=== PATIENT | male | born 1965 | race Two or more races ===

== ENCOUNTER 2018-05-03 09:47 | Observation (INO) | payer OTHER ==
[2018-05-03] MEDS ORDERED: HYDROmorphONE/DILAUDID 2 MG/ML INJ IVP ONE (11:06)
--- NOTE | 2018-05-03 11:07 | EDPHY ---
HPI/HX/ROS/PE/MDM Narrative: CHIEF COMPLAINT: Chest pain, back pain, syncope, dizziness HISTORY OF PRESENT ILLNESS: The patient is a Vietnamese-speaking 53 y/o male with a history of diabetes, hypertension, hypercholesterolemia, and chronic back pain arriving via EMS with his family complaining of chest pain, back pain , syncope, and dizziness this morning. He woke up feeling normal and checked his BGL which was also normal. He was able to walk his dog without issue. Upon returning to his house he drank a smoothie then felt "something cool inside my chest then I didn't know what happened until I found myself on the floor." He had room-spinning dizziness preceding the fall and continues to feel mildly dizzy. He noticed worsening left-sided back pain and left knee pain after the fall. This event was unwitnessed and his upstairs did not hear him collapse. His found him complaining of shortness of breath and grabbing his head, though right now he denies dyspnea or headache. He currently denies chest pain, but does report for the last 2 weeks he's had intermittent sharp chest pain lasting a few seconds at a time. He denies sensation of an irregular or rapid heart rate at any point. No known history of CAD or respiratory disease. No fever, chills, palpitations, vomiting, diarrhea, urinary complaints, headache , weakness, paresthesias. History obtained via Vietnamese world language teacher. REVIEW OF SYSTEMS: Aside from elements discussed in the HPI, a comprehensive 10-point review of systems was reviewed and is negative. PAST MEDICAL HISTORY: Diabetes, hypertension, hypercholesterolemia, kidney failure but not yet on dialysis, chronic back pain and shoulder surgery from injury several years ago. SOCIAL HISTORY: Nonsmoker. Family at bedside. Vietnamese-speaking. Not employed. VITAL SIGNS: Reviewed by me GENERAL: Well-developed, well-nourished, resting comfortably in no respiratory distress. HEENT: Atraumatic. Eyes: No icterus, no injection. Mouth: moist mucous membranes. No erythema or lesions. Neck: supple with no adenopathy. LUNGS: Clear to auscultation bilaterally, no wheezes, rhonchi or rales. CARDIAC: Regular rate and rhythm, no rubs, murmurs or gallops. ABDOMEN: Soft, nontender, nondistended, bowel sounds normal. BACK: Diffuse tenderness across entire spine. No CVA tenderness. No visible trauma. EXTREMITIES: No trauma. No edema. Range of motion is normal throughout. NEURO: Alert and oriented, grossly nonfocal. SKIN: Warm and dry, no rash. PSYCHIATRIC: Normal mentation, no agitation. Portions of this note were transcribed by a medical administrator. I personally performed a history, physical exam, medical decision making, and confirmed accuracy of information the transcribed note. ED Course: This is a 53 y/o male who presents with back pain, dizziness, and intermittent chest pain and what sounds like a syncopal episode this morning. He has diffuse spinal tenderness and it's hard to determine what is different from his baseline back pain. He is neurovascularly intact. Plan for IV, labs, EKG, head CT, C/T/L CT scans, chest x-ray. 1mg IV Dilaudid administered for pain. The 12 lead EKG was interpreted by myself. Sinus mechanism with abnormal R wave progression with prominent R in V2. See hard copy and/or "tracemaster" electronic copy for interpretation. Patient's evaluation emergency department included a head CT, CT cervical, thoracic, lumbar spine CT and chest x-ray. These were all negative for acute findings. Patient's laboratory evaluation is largely unremarkable. He has negative troponin. Given the fact that this patient has diabetes, hypertension, hypercholesterolemia, and is complaining of intermittent episodes of chest discomfort patient was admitted to the hospital to rule out cardiac syncope as a cause of today's event. I explained all this to the patient and his family via the household cook. MDM: Differential diagnosis for the patient's syncopal episode was considered including but not limited to vasovagal syncope, arrhythmia, dehydration, and blood loss. Differential diagnosis of this patient's fall was considered including but not limited to intracranial injury, long bone and pelvic bone fracture, spinal injury, intrathoracic injury, extremity injury, intra-abdominal injury, lacerations, abrasions, and contusions. - Data Points Imaging Results: CT Thoracic Spine: Impression: No evidence for acute fracture of the thoracic spine. Mild multilevel degenerative disk and degenerative joint disease in the thoracic spine. Incidental atherosclerotic calcifications in the coronary arteries. CT lumbar spine without contrast Impression: No evidence for acute fracture of the lumbar spine. Severe multilevel degenerative disk and degenerative joint disease in the lumbar spine, most predominant at L3-L4, L4-L5, and L5-S1. Results called and discussed with Dr. Yadira Vincent on May 03, 2018 at 1212 hours. Dictated By: Saul Almeida MD CT Head Impression: Normal. CT cervical spine without contrast. Impression: No evidence for acute fracture of the cervical spine. Degenerative disk and degenerative joint disease at C4-C5 and C5-C6 with mild encroachment. Results called and discussed with Dr. Yadira Vincent on May 03, 2018 at 1206 hours. Dictated By: Salu Almeida MD CXR: Impression: No acute findings in the chest. Dictated By: Hilario Montejo MD Imaging: Discussed imaging studies w/ scallop binder Radiologist, I viewed and interpreted images myself Laboratory Results: Laboratory Results 05/03/18 09:55 05/03/18 09:55 Medications Given: Discontinued Medications Acetaminophen (Tylenol) 650 mg PO Q6 PRN PRN Reason: Pain, Mild/Fever, Can Take PO Stop: 10/30/18 15:05 Last Admin: 05/04/18 03:55 Dose: 650 mg Atorvastatin Calcium (Lipitor) 80 mg PO HS [place] Stop: 10/30/18 20:59 Last Admin: 05/04/18 21:01 Dose: 80 mg Heparin Sodium (Porcine) (Heparin Sc Injection) 5,000 unit SC Q8HRS [place] Stop: 10/31/18 21:59 Last Admin: 05/05/18 06:06 Dose: 5,000 unit Hydromorphone HCl (Dilaudid) 1 mg IVP EDNOW ONE Stop: 05/03/18 11:07 Last Admin: 05/03/18 11:13 Dose: 1 mg Sodium Chloride (Ns) 1,000 mls @ 75 mls/hr IV CONT [place] Stop: 10/30/18 15:14 Last Admin: 05/03/18 16:00 Dose: 1,000 mls Levothyroxine Sodium (Synthroid) 88 mcg PO DAILY06 [place] Stop: 10/31/18 05:59 Last Admin: 05/05/18 06:06 Dose: 88 mcg [id number]-6-Uwkb Ethyl Esters (Fish Oil) 1,000 mg PO DAILY [place] Stop: 10/31/18 08:59 Last Admin: 05/05/18 08:27 Dose: 1,000 mg Point of Care Test Results: Chemistry 05/03/18 10:16 POC Troponin I 0.01 ng/mL ng/mL (0.00-0.08) General Time Seen by Provider: 05/03/18 10:24 Initial Vital Signs: Initial Vital Signs Temperature (C) 36.5 C 05/03/18 09:47 Heart Rate 79 05/03/18 09:47 Respiratory Rate 24 H 05/03/18 09:47 Blood Pressure 145/100 H 05/03/18 09:47 O2 Sat (%) 95 05/03/18 09:47 O2 Delivery Mode Room Air Allergies/Adverse Reactions: No Known Allergies Allergy (Verified 05/03/18 10:01) Home Medications: Medication Instructions Recorded Atorvastatin Calcium [Lipitor 40 80 mg PO HS 05/03/18 mg (*)] Levothyroxine [Synthroid 88 mcg 88 mcg PO DAILY06 05/03/18 (*)] Lisinopril [Zestril 40 mg (*)] 40 mg PO DAILY 05/03/18 [place]-3 Fatty Acids [Fish Oil 1000 1,000 mg PO DAILY 05/03/18 mg (*)] metFORMIN HCL [Glucophage 500 mg 1,000 mg PO BID 05/03/18 (*)] Departure - Departure Disposition: [facility] Inpatient Acute Clinical Impression: Multiple contusions Syncope Qualifiers: Syncope type: unspecified Qualified Code(s): R55 - Syncope and collapse Condition: Good Report Scribed for: Yadira Vincent Report Scribed by: Amanda Dobbs Date of Report: 05/03/18 Time of Report: 11:10
[2018-05-03 11:17] LABS: PLATELET COUNT 202 10^3/uL (150-400)
[2018-05-03] MEDS ORDERED: ONDANSETRON 4 MG/2 ML VIAL IVP PRN (15:06)
[2018-05-03] MEDS ORDERED: ACETAMINOPHEN 325 MG TAB PO PRN (15:06)
[2018-05-03] MEDS ORDERED: NS 1,000 ML IV SCH (15:15)
--- NOTE | 2018-05-03 15:38 | PDGENHP ---
History and Physical History and Physical: CC: Acute unprovoked syncope without prodrome, recent chest pains HISTORY: This patient who has no prior history of syncope or near-syncope was feeling well when he got up this morning, walked his dog, then had a sudden syncope without a real prodrome. He does mention that he drank us smoothie prior to the syncope and reports that it felt cooler than he expected in his esophagus, it had been refrigerated. However he suddenly while walking across the kitchen has no recollection until he later woke up on the floor. He recalls absolutely no other symptoms today or yesterday. He says he has been eating and drinking well without difficulty, no fevers. He does report that he has had several episodes of chest pain over the last 2 weeks some of which were exertion related but that these were sharp in nature. He has not had any previous evaluation for these and does not have a history of heart disease. However he does have significant risk factors with diabetes hyperlipidemia and hypertension and family history ROS: A comprehensive 10 system review revealed no other significant findings PAST MEDICAL HISTORY: Diabetes mellitus Diabetic nephropathy Hypertension Hyperlipidemia Chronic back pain from an injury FAMILY MEDICAL HISTORY: Sudden cardiac in at least 1 family member in [place], details uncertain SOCIAL HISTORY: lives with his No smoking On disability because of his chronic back pain MEDICATIONS: The patients list has been reconciled by our clinical pharmacist in the EMR. I have reviewed the list and ordered appropriate medicines. PHYSICAL EXAMINATION: Vital Signs: Mild intermittent hypertension otherwise normal and without fever Rougher Operator: Sinus Examination: General: alert, oriented, good mentation, relaxed Skin: warm, dry, good color, no rash HEENT: normal Neck: no mass or jvd Resps: relaxed Lungs: clear breath sounds Heart: regular, no murmur Abdomen: soft, nondistended, nontender, +BS, no mass Upper Extremities: normal Lower Extremities: no edema, warm No Bleeding or bruising Neurologic: normal speech/language, normal marketing rep, no focal weakness IV site: looks normal LABORATORY DATA: Undetectable troponin Creatinine 1.7 with most recent baseline 1.4 in 2015 Mildly hyperchloremic on his chemistry Unremarkable CBC RADIOLOGY STUDIES: I reviewed chest x-ray image from the ER this is a normal chest x-ray 12 LEAD EKG: I reviewed his 12 EKG tracing from ER which shows a sinus rhythm, no acute ischemic abnormalities, no evidence of prior infarction or conduction abnormality. Normal voltages. Comparison to the prior EKG shows no significant change ASSESSMENT: * Acute Syncope with no prodromal symptoms * chest pain, several episodes over the last 2 weeks, some features consistent with angina others less consistent * Chronic Diabetic Renal Disease, likely at baseline but no recent tests in our lab system * risk factors include diabetes mellitus, hyperlipidemia, hypertension, family history of sudden cardiac * Coronary Calcifications incidentally noted on CT scans done in the ER today * Increase in chronic back pain after today's fall but no evidence of spine injury by CT or exam PLANS: * Observation status * 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
[2018-05-03] MEDS: ATORVASTATIN CALCIUM 40 MG TAB PO SCH (20:17)
[2018-05-04] MEDS: LEVOTHYROXINE 88 MCG TAB PO SCH (05:56)
[2018-05-04] MEDS: OMEGA-3 FATTY ACIDS 1,000 MG CAP PO SCH (08:58)
--- NOTE | 2018-05-04 11:01 | ECHO ---
[email or web address] [address] [address] Main: [phone] Fax: Transthoracic Echocardiogram Name: GEORGE JOHNS MR#: [id number] Study Date: 05/04/2018 Study Time: 07:43 AM Date of : 1965 Age: 53 year(s) Height: 170.2 cm (67 in.) Weight: 109.32 kg (241 lb.) BSA: 2.19 m2 Gender: Male Examination: Echo Indication: Cardiac: syncope Image Quality: Contrast: Requested by: Russ Israel BP: 129 mmHg/82 mmHg Heart Rate: Rhythm: Indication: Cardiac: syncope Procedure Staff Commodity Loan Clerk: Dorian Pizarro RDCS Reading Physician: Adrien Rousseau MD Requesting Provider: Conclusions: Normal study Measurements: Chambers Valvular Assessment AV/MV Valvular Assessment TV/PV Normal Normal Normal Name Value Range Name Value Range Name Value Range Ao Leydi (MM): 3.0 cm (2.2 cm-3.7 AV Vmax: 1.05 m/s (1 m/s-1.7 TR Vmax: 2.24 mm/s ( - ) cm) m/s) TR PGmax: 20 mmHg ( - ) IVSd (2D): 1.0 cm (0.6 cm-1.1 AV maxP mmHg ( - ) syst. PAP: 25 mmHg ( - ) cm) LVOT Vmax: 0.72 m/s (0.7 m/s-1.1 PV Vmax: 0.92 m/s (0.6 m/s-0.9 LVDd (2D): 4.7 cm (4.2 cm-5.9 m/s) m/s) cm) MV E Vmax: 0.94 m/s ( - ) PV PGmax: 3 mmHg ( - ) LVDs (2D): 2.8 cm (2.1 cm-4 MV A Vmax: 0.66 m/s ( - ) cm) MV E/A: 1.42 ( - ) LVPWd (2D): 1.0 cm (0.6 cm-1 cm) LVEF (2D): 69 (>=54 %) Continued Measurements: Chambers Valvular Assessment AV/MV Valvular Assessment TV/PV Name Value Name Value Name Value LADs Lon.0 cm MV E' Septal: 0.08 m/s CVP (est.): 5 mmHg LA Area: 14.1 cm2 MV E/E' Septal: 12.00 LA Volume: 32 ml MV E/E' Lateral: 11.20 LA Volume Index: 14.6 ml/m2 Findings: Left Ventricle: Patient: GEORGE JOHNS Study Date: 05/04/2018 Page 1 of 2 07:43 AM Normal size left ventricle. No LV hypertrophy. Normal global systolic LV function. EF is 69 %. No regional wall motion abnormality. Normal diastolic LV function. Right Ventricle: Normal size right ventricle. Left Atrium: The left atrium is normal in size. Right Atrium: The right atrium is normal in size. Mitral Valve: The mitral valve is normal in appearance and function. Aortic Valve: The aortic valve is normal in appearance and function. Tricuspid Valve: The tricuspid valve is normal in appearance and function. The pulmonary artery pressure is normal. Pulmonic Valve: The pulmonic valve is normal in appearance and function. Aorta: The aorta is normal. Pericardium: No pericardial effusion. (No Signature Object) Patient: GEORGE JOHNS Study Date: 05/04/2018 Page 2 of 2 07:43 AM [id number]
--- NOTE | 2018-05-04 12:49 | HOSPPROG ---
Hospitalist Progress Note Assessment/Plan: * Acute Syncope with no prodromal symptoms * chest pain, several episodes over the last 2 weeks, some features consistent with angina others less consistent * Chronic Diabetic Renal Disease, likely at baseline but no recent tests in our lab system * risk factors include diabetes mellitus, hyperlipidemia, hypertension, family history of sudden cardiac * Coronary Calcifications incidentally noted on CT scans done in the ER today * Increase in chronic back pain after fall but no evidence of spine injury by CT or exam PLANS: * Troponins remained negative overnight * 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 * Will plan to do Nuclear Stress Test tomorrow AM * Echocardiogram pending * If normal stress test tomorrow, plan for d/c tomorrow afternoon Subjective: Patient states he has not had LH/dizziness, syncope since admission Objective: Vital Signs Temp Pulse Resp BP Pulse Ox 36.7 C 81 16 120/85 H 96 05/04/18 11:24 05/04/18 11:24 05/04/18 11:24 05/04/18 11:24 05/04/18 11:24 Laboratory Results 05/04/18 03:40 05/03/18 05/04/18 05/05/18 05:59 05:59 05:59 Intake Total 1300 Balance 1300 - Physical Exam Constitutional: no apparent distress Eyes: PERRL Ears, Nose, Mouth, Throat: moist mucous membranes Cardiovascular: regular rate and rhythym Respiratory: no respiratory distress, clear to auscultation Gastrointestinal: normoactive bowel sounds Genitourinary: no bladder tenderness Skin: warm Musculoskeletal: abnormal gait Neurologic: AAOx3 Psychiatric: interacting appropriately ICD10 Worksheet Patient Problems: Problems Problem Status Onset Chest pain Acute Syncope Acute - ICD10 Problem Qualifiers (1) Syncope (2) Chest pain
--- NOTE | 2018-05-04 15:03 | ASMTCASEMG ---
Living Arrangements What is your living Answers: With Spouse arrangement? Who do you live with? Type Of Residence What kind of residence do Answers: House you live in? Discharge Plan Comments Coordination Status Comments Notes: Pt is a 53 y/o man admitted for syncope, chest pain and back pain. PT has been ordered and awaiting recommendations. OT is recommending home independent. Pt is a [facility] pt. Needs are TBD at this time. CM to follow. Plan: TBD Date Signed: 05/04/2018 03:02 PM Electronically Signed By:NOLAN Garcia
--- NOTE | 2018-05-04 20:30 | CPEKG ---
Test Reason : OPEN Blood Pressure : / mmHG Vent. Rate : 084 BPM Atrial Rate : 084 BPM P-R Int : 171 ms QRS Dur : 104 ms QT Int : 368 ms P-R-T Axes : 045 045 049 degrees QTc Int : 436 ms Sinus rhythm Abnormal R-wave progression, early transition Confirmed by Yadira Vincent ([id number]) on 05/04/2018 8:29:43 PM Referred By: Confirmed By:Yadira Vincent
[2018-05-04] MEDS: ATORVASTATIN CALCIUM 40 MG TAB PO SCH (21:01)
[2018-05-04] MEDS: HEPARIN 5,000 UNIT/0.5 ML INJ SC SCH (21:06)
[2018-05-05] MEDS: HEPARIN 5,000 UNIT/0.5 ML INJ SC SCH (06:06)
[2018-05-05] MEDS: LEVOTHYROXINE 88 MCG TAB PO SCH (06:06)
[2018-05-05] MEDS: OMEGA-3 FATTY ACIDS 1,000 MG CAP PO SCH (08:27)
[2018-05-05] MEDS ORDERED: REGADENOSON 0.4 MG/5 ML SYR IVP ONE (09:59)
--- NOTE | 2018-05-05 10:55 | CPR ---
[f rep st] NONINVASIVE CARDIAC PROCEDURE REPORT PROCEDURE: Lexiscan Injection of Lexiscan MPI Study. SUPERVISING ONCOLOGY REP SPECIALIST: Dr. Sg Mckenzie INDICATION FOR PROCEDURE: Chest pain, abnormal electrocardiogram, patient unable to run on treadmill due to osteoarthritis. PRE: Patient is Polish-speaking only, and professional freelance interpreter/translator is present during full testing. After obtaining informed consent, ensuring patient's n.p.o. status of caffeine for greater than 8 ho urs, initial electrocardiogram was done showing sinus rhythm with early R-wave transition in the prec ordial leads. The patient denied any chest pain, shortness of breath, or symptoms suggesting ischemi a. STRESS: The patient was given Lexiscan slow IV push, followed by nuclear isotope. Within 2 minutes of injection, patient did report some mild abdominal discomfort, shortness of breath, and a flushing sensation in his head. Heart rate did increase to 100 beats per minute, sinus tachycardia. Blood pr essure elevated up to 140/84, saturation 95%. Within 3 minutes post injection, patient was given ca ffeinated beverage and within a few minutes after that he reported all symptoms subsided. He remaine d free of chest pain or pressure, or symptoms of ischemia throughout monitoring. Final heart rate wa s 93, blood pressure was 122/76, saturation 98%. No significant EKG changes noted throughout testing . No arrhythmias. Currently he is asymptomatic. He will finish poststress imaging in Nuclear Medic ine at this time. /[id number]/MODL
[2018-05-05 11:05] VITALS: BP 135/95
--- NOTE | 2018-05-05 12:01 | ASMTLACE ---
LACE Length of stay for Answers: 2 days current admission Acuity / Level of Answers: No Care: Did the patient have an inpatient admission? Comorbidities - select Answers: Diabetes (uncontrolled or all that apply controlled) Opioid dependence / Chronic pain Other Notes: HTN; HLD # of Emergency department Answers: 1-2 visits in the last 6 months Score: 9 Date Signed: 05/05/2018 12:00 PM Electronically Signed By:NOLAN Garcia
--- NOTE | 2018-05-05 12:26 | PDIAF ---
- Diagnosis Code Status: Full Code - Medication Management Discharge Medications: Medications to Continue on Transfer Atorvastatin Calcium [Lipitor 40 mg (*)] 80 mg PO HS 05/03/18 [Last Taken ] Levothyroxine [Synthroid 88 mcg (*)] 88 mcg PO DAILY06 05/03/18 [Last Taken ] Lisinopril [Zestril 40 mg (*)] 40 mg PO DAILY 05/03/18 [Last Taken 05/02/18] [place]-3 Fatty Acids [Fish Oil 1000 mg (*)] 1,000 mg PO DAILY 05/03/18 [Last Taken Unknown] metFORMIN HCL [Glucophage 500 mg (*)] 1,000 mg PO BID 05/03/18 [Last Taken 05/02 21:00] Discharge Medications: Refer to the Discharge Home Medication list for PRN reason. - Orders Services needed: Registered Nurse, Master Patient Flow Coordinator, Physical Therapy Diet Recommendation: no restrictions on diet Diet Texture: Regular Texture Diet - Follow Up Care Current Providers and Referrals: Patient,NotPresent [Unknown] - As per Instructions
--- NOTE | 2018-05-05 12:42 | ASMTDCNOTE ---
Case Management Discharge Discharge Order Complete? Answers: Yes Patient to Obtain Answers: Independently Medications Transportation Arranged Answers: Family/Friends EMTALA Complete Answers: No Case Management Transport Answers: No Form Complete Faxed Final Orders Answers: Yes Agency/Facility Transfer Answers: Yes Report Printed & Faxed to Receiving Agency Family Notified Answers: No Discharge Comments Notes: Pts case discussed in tx rounds. CM met w/ pt with an chicken raiser. Pt reports that his daughters have been causing him significant stress. CM recommended that he calls his PCP office and request a meeting w/ a social insurance adviser or a case loader operator. CM recommended that he goes to see a therapist. Pt is interested in applying for Medicaid as a secondary insurance. Referral made to [facility]. [facility] will meet w/ pt and determine if he is eligible. PT is recommending HC. Pt is agreeable to HC. Referral sent to [facility]. [facility] is able to accept. CM available for changes. Plan: [facility]; PT, RN, Date Signed: 05/05/2018 12:41 PM Electronically Signed By:NOLAN Garcia
--- NOTE | 2018-05-05 12:43 | ASDISCHSUM ---
Discharge Information Plan Status:Home with Home Health Medically Cleared to Leave:05/05/2018 Discharge Date:05/05/2018 CM D/C Disposition: ADT D/C Disposition: Projected Discharge Date:05/05/2018 11:00 AM Transportation at D/C: Discharge Delay Reason: Follow-Up Date:05/05/2018 11:00 AM Discharge Slot: Final Diagnosis: Placement Information Referral Type:*Home Health Care Services Referral ID:[id number] Provider Name:[facility] Address 1:[address] Address 2: City:[place] Selection Factors: State:[place] Patient Contact Information Contact Name:PEPITO Relationship: Address:[address] City:[place] Alternate Phone: State/Zip Code:[place] [address] Email: Financial Information Financial Class:Medicare Advantage Plans Primary Plan Desc:[employer] ADV IP Primary Plan Number:[id number] Secondary Plan Desc: Secondary Plan Number: Assessment Information LACE LACE Length of stay for Answers: 2 days current admission Acuity / Level of Answers: No Care: Did the patient have an inpatient admission? Comorbidities - select Answers: Diabetes (uncontrolled or all that apply controlled) Opioid dependence / Chronic pain Other Notes: HTN; HLD # of Emergency department Answers: 1-2 visits in the last 6 months Score: 9 Date Signed: 05/05/2018 12:00 PM Electronically Signed By:NOLAN Garcia [facility] Initial CM Assessment Living Arrangements What is your living Answers: With Spouse arrangement? Who do you live with? Type Of Residence What kind of residence do Answers: House you live in? Discharge Plan Comments Coordination Status Comments Notes: Pt is a 53 y/o man admitted for syncope, chest pain and back pain. PT has been ordered and awaiting recommendations. OT is recommending home independent. Pt is a [place] pt. Needs are TBD at this time. CM to follow. Plan: TBD Date Signed: 05/04/2018 03:02 PM Electronically Signed By:NOLAN Garcia Case Management Discharge Plan Note Case Management Discharge Discharge Order Complete? Answers: Yes Patient to Obtain Answers: Independently Medications Transportation Arranged Answers: Family/Friends EMTALA Complete Answers: No Case Management Transport Answers: No Form Complete Faxed Final Orders Answers: Yes Agency/Facility Transfer Answers: Yes Report Printed & Faxed to Receiving Agency Family Notified Answers: No Discharge Comments Notes: Pts case discussed in tx rounds. CM met w/ pt with an government documents librarian. Pt reports that his daughters have been causing him significant stress. CM recommended that he calls his PCP office and request a meeting w/ a social sciences chair or a case managers. CM recommended that he goes to see a therapist. Pt is interested in applying for Medicaid as a secondary insurance. Referral made to [facility] will meet w/ pt and determine if he is eligible. PT is recommending HC. Pt is agreeable to HC. Referral sent to [facility]. [facility] is able to accept. CM available for changes. Plan: [facility]; PT, RN, SW Date Signed: 05/05/2018 12:41 PM Electronically Signed By:NOLAN Garcia [facility] Information
--- NOTE | 2018-05-05 13:39 | PDDCSUM ---
Discharge Summary Discharge Summary: Admission Date: 05/03/2018 Discharge Date: 05/05/2018 Admission/Discharge Diagnosis: Syncope, non-cardiac chest pain Consults: Cardiology Procedure: Nuclear Stress test Followup: PCP Hospital Course: * Acute Syncope with no prodromal symptoms * chest pain, several episodes over the last 2 weeks, some features consistent with angina others less consistent * Chronic Diabetic Renal Disease, likely at baseline but no recent tests in our lab system * risk factors include diabetes mellitus, hyperlipidemia, hypertension, family history of sudden cardiac * Coronary Calcifications incidentally noted on CT scans done in the ER today * Increase in chronic back pain after fall but no evidence of spine injury by CT or exam PLANS: * Troponins remained negative, cardiac monitoring did not reveal any arrythmias * Nuclear Stress Test performed this morning which was negative for ischemia Time spent on discharge >35 minutes with >50% spent on patient education/ counseling
== END 2018-05-05 15:16 | disposition home health service (06) ==
LOC: EDUNIT# → F2W 15:00
PROVIDERS: ADMIT Internal Medicine; ATTEND Internal Medicine
DX: R55 Syncope and collapse (principal); S30.0XXA Contusion of lower back and pelvis, initial encounter; R07.9 Chest pain, unspecified; E11.22 Type 2 diabetes mellitus with diabetic chronic kidney disease; I25.10 Atherosclerotic heart disease of native coronary artery without angina pectoris; M54.9 Dorsalgia, unspecified; X58.XXXA Exposure to other specified factors, initial encounter
CPT/HCPCS: 70450; 71046; 72125; 72128; 72131; 78452; 93005; 93017; 93306; 96372; 96374; 97161; 97165; 97530; 97535; 99285; A9500; G0378; 84484-PO; J1170; J1644; J2785